=== PATIENT | male | born 1945 | race Caucasian/White ===

== ENCOUNTER → 2017-03-22 | Outpatient (CLI) | payer MEDICARE ==
[~2017-03-22] MED LIST: ASPI-496 PO; ATOR-2 PO; CHOL200074 PO; CLOP75TA52 PO; ESZO1TAB8 PO; EZET10TA18 PO; LISI40TA PO; METO25TA35 PO/NG; OMEP-110 PO; OXYC5TAB3 PO; TAMS0.4C2 PO; ZOLP-413 PO
== END | disposition home or self-care (01) ==
LOC: CFH 06:58
PROVIDERS: ATTEND Internal Medicine Cardiovascular Disease
DX: I08.0 Rheumatic disorders of both mitral and aortic valves (principal); I10 Essential (primary) hypertension; Z95.1 Presence of aortocoronary bypass graft
CPT/HCPCS: 78452; 93017; 93306; A9502

== ENCOUNTER 2019-06-09 06:51 | Outpatient (CLI) | payer MEDICARE ==
[~2019-06-09 06:51] MED LIST changes: -EZET10TA18 PO; +EZET10TA70 PO
== END 2019-06-09 23:59 | disposition home or self-care (01) ==
LOC: CVU 06:51 → RAD 23:59
PROVIDERS: ATTEND Internal Medicine Cardiovascular Disease
DX: I65.23 Occlusion and stenosis of bilateral carotid arteries (principal); I08.8 Other rheumatic multiple valve diseases; I25.10 Atherosclerotic heart disease of native coronary artery without angina pectoris; E78.5 Hyperlipidemia, unspecified
CPT/HCPCS: 0399T; 78452; 93017; 93306; 93880; A9502